=== PATIENT | female | born 2000 | race African-American/Black ===

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

== ENCOUNTER 2020-01-25 10:12 | Emergency (ER) | payer MEDICAID ==
[~2020-01-25] VITALS: Ht 162.6 cm; Wt 109.0 kg
[~2020-01-25 10:12] MED LIST: PREN-135 PO
[2020-01-25] MEDS ORDERED: albuterol (10:19)
[2020-01-25] MEDS ORDERED: ONDANSETRON HCL 4MG TABLET PO ONE (11:15)
[2020-01-25 14:21] VITALS: BP 145/74
== END 2020-01-25 14:21 | disposition home or self-care (01) ==
LOC: ER 10:17
DX: F43.20 Adjustment disorder, unspecified (principal); J45.909 Unspecified asthma, uncomplicated; R42 Dizziness and giddiness; R11.0 Nausea; Z88.0 Allergy status to penicillin; Z91.013 Allergy to seafood; Z79.899 Other long term (current) drug therapy
CPT/HCPCS: 82962; 93005; 99283; Q0162